=== PATIENT | female | born 1980 | race Caucasian/White ===

== ENCOUNTER → 2024-02-01 17:26 | Outpatient (REF) | payer OTHER, SELFPAY | LOC: WDC 17:26 | PROVIDERS: ATTENDING PHYSICIAN Obstetrics & Gynecology; FAMILY PHYSICIAN Family Medicine | DX: Z12.31 Encounter for screening mammogram for malignant neoplasm of breast (principal) | CPT/HCPCS: 77063; 77067 ==

== ENCOUNTER 2024-02-06 13:02 | Emergency (ER) | payer OTHER, SELFPAY ==
[2024-02-06 13:06] VITALS: BP 126/73
[2024-02-06] MEDS: VALIUM 5 MG PO (14:57)
[2024-02-06] MEDS: TYLENOL 1000 MG PO (14:57)
[2024-02-06] MEDS: MOTRIN 600 MG PO (14:58)
--- NOTE | 2024-02-06 15:10 | ED.GENMED ---
History of Present Illness
General
Chief Complaint: Back Pain
Source: patient and spouse
Exam Limitations: none
Time Seen by Provider: 02/06/24 14:39
Nursing documentation reviewed up to this point in time: agreed with
Travel History
Have you had any contact with someone who has COVID-19?: No
Do you have any symptoms of coronavirus? Fever > 100 degrees, chills, cough, shortness of breath, sore throat, loss of taste or smell, muscle aches, or headache?: No
History of Present Illness
History of Present Illness:
43-year-old female presenting to the emergency department today with concerns of low back pain mainly to the left low back that started when she went to pick something up from the ground now having increased discomfort when straightening her back.
Denies any numbness weakness changes in bowel or bladder function. Denies any fevers recent illness.
Past History
Past History
ED Past Medical History: None
ED Past Surgical History: None and Gynecological (D and E. Jan 17 2021)
Social History
Tobacco: Non-smoker
Alcohol: None
Personal:
Living: with family
Employment: Employed
Family History
Family History: Other (Noncontributory)
Review of Systems
Review of Systems
Allergies reviewed?: Yes
All Other Systems: ROS reviewed and negative except as documented in HPI and ROS
Phy Exam
Physical Exam
Physical Exam:
GENERAL: Alert , in no apparent distress
EYE: pupils equal and reactive
NECK: Supple, no significant adenopathy.
ENT: o/p clr, mmm.
CARDIAC: Regular rate and rhythm .
LUNGS: Clear breath sounds bilaterally, no acute respiratory distress, no wheezes/rales/rhonchi
ABDOMEN: Soft, without focal tenderness, no r/g, no cvat
NEUROLOGICAL: Alert and oriented, no focal neuro deficits
SKIN: Warm and dry, skin intact.
MUSCULOSKELETAL: No edema, well perfused.
PSYCH: Normal and appropriate interaction.
Course
Orders/Labs/Results
Orders:
Orders
02/06/24 13:39
Lumbar Spine Complete, 4 View [CR Lumbar Spine Comp Min 4 Vw*] Urgent
Comment:
Reason For Exam: pain
02/06/24 14:48
Acetaminophen [Tylenol] 1,000 mg PO NOW STA
Diazepam [Valium] 5 mg PO NOW STA
Ibuprofen [Motrin] 600 mg PO NOW STA
Vital Signs
Initial and Last Documented VS:
Initial Vital Signs
Temp Pulse Resp BP Pulse Ox
98.1 F 98 18 126/73 97
02/06/24 13:06 02/06/24 13:06 02/06/24 13:06 02/06/24 13:06 02/06/24 13:06
Last Documented Vital Signs
Temp Pulse Resp BP Pulse Ox
98.1 F 98 18 126/73 97
02/06/24 13:06 02/06/24 13:06 02/06/24 13:06 02/06/24 13:06 02/06/24 13:06
MDM/Problems Addressed
MDM/Problems Addressed:
43-year-old female presenting to the emergency department today with concerns of low back pain that started when she was picking something up from the ground earlier today. Has had increased discomfort with certain positions and straightening her
back. No midline pain here no redness or warmth no change in bowel or bladder was abrupt in spinal epidural abscess unlikely. Normal neurologic function making cauda equina unlikely. X-ray without emergent findings. Patient with likely
mechanical back pain. Plan for symptomatic treatment.
*Critical Care Note
Total Time (30-74mins, 75-104mins- exclusive of procedures): Not Applicable
ED Attending Note
-
Portions of this chart may have been created with voice recognition software.� Occasional wrong word or��sound alike� substitutions may have occurred due to the inherent limitations of voice recognition software.
Discharge Plan
Departure
Patient Disposition: Home (Routine Discharge)
Date of Disposition: 02/06/24
Time of Disposition: 15:31
Patient with high blood pressure during this ER visit?: No
Condition: Good
Covid-19: Not Applicable
Discharge Problem:
Low back pain
Instructions: Low Back Pain (DC)
Prescriptions:
New
cyclobenzaprine 10 mg tablet
10 mg PO BID PRN (Reason: muscle spasm) Qty: 7 0RF
ibuprofen 600 mg tablet
600 mg PO Q6H PRN (Reason: Pain) Qty: 14 0RF
No Action
cefdinir [Omnicef] 300 MG capsule
300 mg PO BID Qty: 14 0RF
Referrals:
Rosales Rutledge MD [Family Provider] -
Activity Restrictions/Additional Instructions:
You came to the emergency department today with concerns of back pain. Please take the prescribed medications to help with symptoms. Return to the emergency department for any worsening, new or concerning symptoms. Otherwise please follow-up
closely with your primary care doctor in 1 to 2 weeks for reassessment and further recommendation.
Interventions
Interventions:
*Risk Screen - Suicide Last Done: 02/06/24 13:06
*Neglect/Abuse Screening Last Done: 02/06/24 13:06
*ED COVID-19 Vaccine History Last Done: 02/06/24 13:06
ED-Musculoskeletal Assessment Last Done: 02/06/24 13:57
Discharge Date and Time
Print Language: CROATIAN
[2024-02-06 15:45] VITALS: BP 122/71
== END 2024-02-06 15:46 | disposition home or self-care (01) ==
LOC: EMR 13:02
PROVIDERS: EMERGENCY PHYSICIAN Emergency Medicine; FAMILY PHYSICIAN Family Medicine
DX: M54.50 Low back pain, unspecified (principal); Z91.040 Latex allergy status
CPT/HCPCS: 99283; 72110

== ENCOUNTER → 2025-04-12 12:05 | Outpatient (REF) | payer OTHER, SELFPAY | LOC: WDC 12:05 | PROVIDERS: ATTENDING PHYSICIAN Nurse Practitioner Family | DX: Z12.31 Encounter for screening mammogram for malignant neoplasm of breast (principal) | CPT/HCPCS: 77063; 77067 ==